=== PATIENT | female | born 1995 | race Hispanic/Latino ===

== ENCOUNTER 2019-01-22 07:43 | Emergency (ER) | payer SELFPAY ==
[2019-01-22] MEDS ORDERED: MORPHINE 4 MG/ML SYR ONE (08:08)
[2019-01-22] MEDS ORDERED: ONDANSETRON 4 MG/2 ML VIAL ONE (08:08)
[2019-01-22 08:20] LABS: Absolute Lymphocytes (CBC) 2.2 K/uL (0.7-4.9); Absolute Monocytes 0.8 K/uL (0.1-1.3); Absolute Neutrophil 8.4 K/uL (1.8-8.0); Basophils % 0.4 % (0-1.3); Eosinophils % 2.6 % (0-4.4); MPV 8.2 fL (7.6-11.3); Monocytes % 6.7 % (3.3-12.3); RBC Red Blood Cell Count 4.85 M/uL (3.86-4.86)
[2019-01-22 08:31] LABS: Urine Blood NEGATIVE (NEG); Urine Glucose NEGATIVE (NEG); Urine Protein NEGATIVE (NEG); Urine Specific Gravity 1.015 (1.005-1.030)
[2019-01-22 08:31] LABS: Urine Bacteria >50 /HPF (<20); Urine Culture Reflex Order NOT NEEDED
--- NOTE | 2019-01-22 09:17 | RAD REPORT ---
EXAM DESCRIPTION: US - Abdomen Exam Limited - 01/22/2019 8:50 am CLINICAL HISTORY: ABD PAIN COMPARISON: No comparisons FINDINGS: The gallbladder demonstrates several shadowing gallstones in the gallbladder. No perichole cystic fluid or gallbladder wall thickening. The common bile duct is normal measuring 5 mm. The liver demonstrates no findings of intrahepatic biliary dilatation. IMPRESSION: Cholelithiasis.
[2019-01-22 09:23] LABS: ALT/SGPT 68 U/L (12-78); AST/SGOT 53 U/L (15-37); Albumin 3.9 g/dL (3.4-5.0); Alkaline Phosphatase 92 U/L (45-117); BUN Blood Urea Nitrogen 13 mg/dL (7-18); Bicarbonate 28 mmol/L (21-32); Bilirubin Direct 0.2 mg/dL (0-0.2); Bilirubin Total 0.5 mg/dL (0.2-1.0); Glucose Level 88 mg/dL (74-106); Lipase 107 U/L (73-393); Potassium 3.7 mmol/L (3.5-5.1); Protein, Total 7.9 g/dL (6.4-8.2); Sodium Level 140 mmol/L (136-145)
--- NOTE | 2019-01-22 09:49 | RAD REPORT ---
EXAM DESCRIPTION: CTAbdomen Pelvis W Contrast - 01/22/2019 9:34 am CLINICAL HISTORY: Abdominal pain. Abd pain, IV contrast only COMPARISON: No comparisons TECHNIQUE: Biphasic CT imaging of the abdomen and pelvis was performed with 100 ml non-ionic IV cont rast. All CT scans are performed using dose optimization technique as appropriate and may include automated exposure control or mA/KV adjustment according to patient size. FINDINGS: The lung bases are clear. The liver, spleen, pancreas, adrenal glands and kidneys are within normal limits. No bowel obstruction, free air, free fluid or abscess. The appendix is normal. No evidence of signi ficant lymphadenopathy. No suspicious bony findings. IMPRESSION: No acute intra-abdominal or pelvic finding.
--- NOTE | 2019-01-22 10:40 | ER ---
Nurse's Notes [facility] Name: Zehra Car Age: 23 yrs Sex: Female : 1995 Arrival Date: 01/22/2019 Time: 07:44 Bed 8 Private MD: Diagnosis: Cholelithiasis Presentation: 01/22 07:51 Transition of care: patient was not received from another setting of care. Onset of tw2 symptoms was January 22, 2019. Risk Assessment: Do you want to hurt yourself or someone else? Patient reports no desire to harm self or others. Initial Sepsis Screen: Does the patient meet any 2 criteria? No. Patient's initial sepsis screen is negative. Does the patient have a suspected source of infection? No. Patient's initial sepsis screen is negative. Care prior to arrival: None. 07:51 Acuity: MADELINE 3 tw2 07:51 Method Of Arrival: Ambulatory tw2 07:51 Presenting complaint: Patient states: epigastric pain that began this morning. Pt aa5 states "I've had this pain before about 4 other times and the last time was about 15 days ago". Pt denies nausea/denies vomiting. Triage Assessment: 07:50 General: Appears uncomfortable, Behavior is cooperative, appropriate for age. Pain: tw2 Complains of pain in abdomen. GI: Abdomen is round non-distended, Reports lower abdominal pain, upper abdominal pain. 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 - Social history:: Smoking status: . - Ebola Screening: : Patient denies travel to an Ebola-affected area in the 21 days before illness onset. - Family history:: not pertinent. - Hospitalizations: : No recent hospitalization is reported. Screenin:50 Abuse screen: Denies threats or abuse. Nutritional screening: No deficits noted. tw2 Tuberculosis screening: No symptoms or risk factors identified. Fall Risk None identified. Assessment: 07:48 General: Appears uncomfortable, Behavior is calm, cooperative, appropriate for age. tw2 Pain: Complains of pain in abdomen. Neuro: Level of Consciousness is awake, alert, obeys commands, Oriented to person, place, time, situation. Cardiovascular: Heart tones S1 S2 Patient's skin is warm and dry. Respiratory: Airway is patent Respiratory effort is even, unlabored, Respiratory pattern is regular, symmetrical, Breath sounds are clear bilaterally. GI: Abdomen is round non-distended, Bowel sounds present X 4 quads. Abd is soft X 4 quads. : No signs and/or symptoms were reported regarding the genitourinary system. EENT: No signs and/or symptoms were reported regarding the EENT system. Derm: No signs and/or symptoms reported regarding the dermatologic system. Musculoskeletal: Circulation, motion, and sensation intact. Range of motion: intact in all extremities. Vital Signs: 07:51 BP 149 / 92; Pulse 84; Resp 19; Temp 97.6(O); Pulse Ox 100% on R/A; tw2 07:52 Temp 97.1(TE); Weight 111.58 kg (R); Pain 9/10; aa5 08:40 BP 128 / 64; Pulse 75; Resp 17; Pulse Ox 97% on R/A; Pain 6/10; tw2 10:34 BP 130 / 89; Pulse 71; Resp 17; Pulse Ox 100% on R/A; tw2 ED Course: 07:44 Patient arrived in ED. as 07:46 Bed in low position. Call light in reach. Adult w/ patient. Pulse ox on. NIBP on. tw2 07:48 Francesco Berrios MD is Attending Physician. rn 07:49 Dianne Harden RN is Primary Nurse. tw2 07:50 Arm band placed on. tw2 07:52 Triage completed. tw2 07:55 Inserted saline lock: 22 gauge in right antecubital area, using aseptic technique. tw2 Blood collected. 08:31 US Abdomen Limited In Process Unspecified. EDMS 09:32 CT completed. Patient tolerated procedure well. Patient moved to CT via wheelchair. ls3 Patient moved back from CT. 09:35 CT Abd/Pelvis - W/Contrast In Process Unspecified. EDMS 10:39 Marcell Nunes MD is Referral Physician. rn 11:03 No provider procedures requiring assistance completed. IV discontinued, intact, tw2 bleeding controlled, No redness/swelling at site. Pressure dressing applied. Administered Medications: 07:58 Drug: Zofran 4 mg Route: IVP; Site: right antecubital; tw2 08:55 Follow up: Response: No adverse reaction tw2 08:03 Drug: morphine 4 mg Route: IVP; Site: right antecubital; tw2 08:55 Follow up: Response: No adverse reaction; Pain is decreased tw2 Outcome: 10:39 Discharge ordered by . rn 11:03 Discharged to home ambulatory, with significant other. tw2 11:03 Condition: stable 11:03 Discharge instructions given to patient, family, Instructed on discharge instructions, follow up and referral plans. Demonstrated understanding of instructions, follow-up care. 11:03 Patient left the ED. tw2 Signatures: Dispatcher [employer] EDMS Nona Nunes Roman, MD MD rn Calderon, Audri RN RN aa5 Dianne Harden RN RN tw2 Logan Saenz 3 Corrections: (The following items were deleted from the chart) 08:40 08:40 BP 128 / 64; Pulse 75bpm; Resp 17bpm; Pulse Ox 97% RA; tw2 tw2
--- NOTE | 2019-01-22 10:40 | EDPHYS ---
Physician Documentation [facility] Name: Zehra Car Age: 23 yrs Sex: Female : 1995 Arrival Date: 01/22/2019 Time: 07:44 Bed 8 Private MD: ED Physician Francesco Berrios HPI: 01/22 07:52 This 23 yrs old Female presents to ER via Ambulatory with complaints of rn Abdominal Pain. 07:52 The patient presents with abdominal pain in the epigastric area. Onset: The rn symptoms/episode began/occurred this morning. The symptoms do not radiate. Associated signs and symptoms: Pertinent positives: nausea, Pertinent negatives: blood in stools, chest pain, constipation, fever, shortness of breath, vomiting. The symptoms are described as crampy, sharp. Modifying factors: The symptoms are alleviated by nothing, the symptoms are aggravated by food. Severity of pain: At its worst the pain was moderate in the emergency department the pain is unchanged. The patient has experienced similar episodes in the past. Reports epigastric abd tenderness, began this morning, has happened several times in past, no fever, + nausea, worse after eating certain foods, more constant this AM and didn't go away so came in for eval. . 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 - Social history:: Smoking status: . - Ebola Screening: : Patient denies travel to an Ebola-affected area in the 21 days before illness onset. - Family history:: not pertinent. - Hospitalizations: : No recent hospitalization is reported. ROS: 07:52 Constitutional: Negative for fever, chills, and weight loss, Eyes: Negative for injury, rn pain, redness, and discharge, Neck: Negative for injury, pain, and swelling, Cardiovascular: Negative for chest pain, palpitations, and edema, Respiratory: Negative for shortness of breath, cough, wheezing, and pleuritic chest pain, Abdomen/GI: + abd pain and nausea, no diarrhea MS/Extremity: Negative for injury and deformity, Skin: Negative for injury, rash, and discoloration, Neuro: Negative for headache, weakness, numbness, tingling, and seizure. Exam: 07:52 Constitutional: This is a well developed, well nourished patient who is awake, alert, bar turner to room, appears uncomfortable. Head/Face: Normocephalic, atraumatic. Eyes: Pupils equal round and reactive to light, extra-ocular motions intact. Lids and lashes normal. Conjunctiva and sclera are non-icteric and not injected. Cornea within normal limits. Periorbital areas with no swelling, redness, or edema. ENT: MMM Respiratory: No increased work of breathing, no retractions or nasal flaring. Abdomen/GI: soft, + epigastric tenderness, no rebound Skin: Warm, dry MS/ Extremity: Pulses equal, no cyanosis. Neurovascular intact. Full, normal range of motion. Equal circumference. Neuro: Awake and alert, GCS 15, oriented to person, place, time, and situation. Motor strength 5/5 in all extremities. Sensory grossly intact. Cerebellar exam normal. Normal gait. Vital Signs: 07:51 BP 149 / 92; Pulse 84; Resp 19; Temp 97.6(O); Pulse Ox 100% on R/A; tw2 07:52 Temp 97.1(TE); Weight 111.58 kg (R); Pain 9/10; aa5 08:40 BP 128 / 64; Pulse 75; Resp 17; Pulse Ox 97% on R/A; Pain 6/10; tw2 10:34 BP 130 / 89; Pulse 71; Resp 17; Pulse Ox 100% on R/A; tw2 MDM: 07:48 Patient medically screened. rn 09:48 Response to treatment: the patient's symptoms have resolved after treatment, the rn patient's condition has returned to base line, the patient is now symptom free. 10:37 Differential diagnosis: cholecystitis, Cholelithiasis, gastritis. Data reviewed: vital rn signs, nurses notes, lab test result(s), radiologic studies, CT scan, ultrasound, and as a result, I will discharge patient. Counseling: I had a detailed discussion with the patient and/or guardian regarding: the historical points, exam findings, and any diagnostic results supporting the discharge/admit diagnosis, lab results, radiology results, the need for outpatient follow up, to return to the emergency department if symptoms worsen or persist or if there are any questions or concerns that arise at home. Special discussion: Based on the patient's Hx, exam, and Dx evaluation, there is no indication for emergent surgery or inpatient Tx. It is understood by the patient/guardian that if the Sx's persist or worsen they need to return immediately for re-evaluation. I discussed with the patient/guardian in detail that at this point there is no indication for admission to the hospital. It is understood, however, that if the symptoms persist or worsen the patient needs to return immediately for re-evaluation. Based on the history and exam findings, there is no indication for further emergent testing or inpatient evaluation. I discussed with the patient/guardian the need to see the general surgeon for further evaluation of the symptoms. ED course: No evidence of cholecystitis, CBD normal, normal ct abd, will dc home with surgical f/u. Return precautions and dietary instructions given.. 01/22 07:52 Order name: Basic Metabolic Panel 01/22 07:52 Order name: CBC with Diff; Complete Time: 08:41 01/22 07:52 Order name: Hepatic Function; Complete Time: 09:40 01/22 07:52 Order name: Lipase; Complete Time: 09:40 01/22 07:52 Order name: Urine Microscopic Only; Complete Time: 08:41 01/22 07:52 Order name: Basic Metabolic Panel; Complete Time: 09:40 EDMS 01/22 07:52 Order name: IV Saline Lock; Complete Time: 08:27 rn 01/22 07:52 Order name: Labs collected and sent; Complete Time: 08:27 rn 01/22 07:52 Order name: US Abdomen Limited; Complete Time: 09:40 rn 01/22 08:10 Order name: Urine Dipstick--Ancillary (enter results); Complete Time: 08:41 eb 01/22 08:10 Order name: Urine --Ancillary (enter results); Complete Time: 08:41 eb 01/22 08:52 Order name: CT Abd/Pelvis - W/Contrast; Complete Time: 09:50 rn 01/22 07:52 Order name: Urine Test (obtain specimen); Complete Time: 08:27 rn 01/22 07:52 Order name: Urine Dipstick-Ancillary (obtain specimen); Complete Time: 08:28 rn Administered Medications: 07:58 Drug: Zofran 4 mg Route: IVP; Site: right antecubital; tw2 08:55 Follow up: Response: No adverse reaction tw2 08:03 Drug: morphine 4 mg Route: IVP; Site: right antecubital; tw2 08:55 Follow up: Response: No adverse reaction; Pain is decreased tw2 Disposition: 01/22/19 10:39 Discharged to Home. Impression: Cholelithiasis. - Condition is Stable. - Discharge Instructions: Cholelithiasis. - Medication Reconciliation Form, Thank You Letter, Antibiotic Education, Prescription Opioid Use form. - Follow up: Marcell Nunes MD; When: As needed; Reason: Recheck today's complaints, Re-evaluation by your physician. - Problem is an ongoing problem. - Symptoms have improved. Signatures: Dispatcher [employer] EDMS Francesco Berrios MD MD rn Calderon, Audri, RN RN aa5 Dianne Harden RN RN tw2 Corrections: (The following items were deleted from the chart) 11:03 10:39 01/22/2019 10:39 Discharged to Home. Impression: Cholelithiasis. Condition is tw2 Stable. Forms are Medication Reconciliation Form, Thank You Letter, Antibiotic Education, Prescription Opioid Use. Follow up: Marcell Nunes; When: As needed; Reason: Recheck today's complaints, Re-evaluation by your physician. Problem is an ongoing problem. Symptoms have improved. rn
== END 2019-01-22 11:03 | disposition home or self-care (01) ==
LOC: ER 07:43
DX: K80.20 Calculus of gallbladder without cholecystitis without obstruction (principal)
CPT/HCPCS: 36415; 74177; 76705; 80048; 80076; 81003; 81015; 81025; 83690; 85025; 96374; 96375; 99284; J2405; Q9967

== ENCOUNTER 2019-01-22 15:40 | Inpatient (IN) | payer SELFPAY ==
--- OUTSIDE RECORDS SUMMARY | 2019-01-22 15:43 | XMS REPORT ---
:1995 [facility] Address [address] [place] [address] [address] [place] [address] Care Team Providers Name Role Phone Unavailable Unavailable Unavailable Payers Payer Name Policy Type Policy Number Effective Date Expiration Date Problems This patient has no known problems. Allergies, Adverse Reactions, Alerts Allergy Allergy Status Severity Reaction(s) Onset Inactive Treating Comments Name Type Date Date Clinician No Known DA Active U 2018-08 Allergies -14 00:00:0 0 Medications This patient has no known medications.
[2019-01-22] MEDS ORDERED: MORPHINE 4 MG/ML SYR ONE (16:12)
[2019-01-22] MEDS ORDERED: NA CHLORIDE 0.9% 1,000 ML ONE (16:12)
[2019-01-22] MEDS ORDERED: ONDANSETRON 4 MG/2 ML VIAL ONE (16:12)
--- NOTE | 2019-01-22 16:34 | ER ---
Nurse's Notes [facility] Name: Zehra Car Age: 23 yrs Sex: Female : 1995 Arrival Date: 01/22/2019 Time: 15:42 Bed 16 Private MD: Diagnosis: Cholelithiasis;Upper abdominal pain, unspecified Presentation: 01/22 15:49 Presenting complaint: Patient states: FROM THE [facility] "I WAS HERE EARLIER FOR STOMACH bp PAIN AND THEY TOLD ME TO COME BACK IF THE PAIN CAME BACK.". Transition of care: patient was not received from another setting of care. Onset of symptoms is unknown. Risk Assessment: Do you want to hurt yourself or someone else? Patient reports no desire to harm self or others. Initial Sepsis Screen: Does the patient meet any 2 criteria? No. Patient's initial sepsis screen is negative. Does the patient have a suspected source of infection? No. Patient's initial sepsis screen is negative. Care prior to arrival: None. 15:49 Method Of Arrival: Ambulatory bp 15:49 Acuity: MADELINE 3 bp Triage Assessment: 15:51 General: Appears in no apparent distress. uncomfortable, obese, Behavior is bp cooperative, appropriate for age, crying. Pain: Complains of pain in abdomen. EENT: No deficits noted. Neuro: Level of Consciousness is awake, alert, obeys commands, Oriented to person, place, time, situation, Appropriate for age. Cardiovascular: No deficits noted. Respiratory: Airway is patent Respiratory effort is even, unlabored, Respiratory pattern is regular, symmetrical. GI: Reports upper abdominal pain. : No signs and/or symptoms were reported regarding the genitourinary system. Derm: No deficits noted. Musculoskeletal: Circulation, motion, and sensation intact. Range of motion: intact in all extremities. 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 - Social history:: Smoking status: Patient/guardian denies using tobacco. - Ebola Screening: : No symptoms or risks identified at this time. Screenin:54 Abuse screen: Denies threats or abuse. Denies injuries from another. Nutritional bp screening: No deficits noted. Tuberculosis screening: No symptoms or risk factors identified. Fall Risk None identified. Assessment: 15:54 General: SEE TRIAGE NOTE. bp 17:00 Reassessment: ADMIT PENDING, VS STABLE ON MONITOR. bp 18:34 Reassessment: SURGERY C/S AT B/S. bp 19:48 Reassessment: Patient appears in no apparent distress at this time. Patient and/or jd3 family updated on plan of care and expected duration. Pain level reassessed. Patient is alert, oriented x 3, equal unlabored respirations, skin warm/dry/pink. report given to Atul CHINO. Vital Signs: 15:51 BP 124 / 73; Pulse 62; Resp 14; Temp 97.8; Pulse Ox 100% ; Weight 111.58 kg; bp 17:28 BP 119 / 76; Pulse 88; Resp 16; Temp 98.9(O); Pulse Ox 99% on R/A; mh5 18:35 BP 107 / 95; Pulse 61; Resp 16; Temp 98.7; Pulse Ox 99% ; bp 19:50 BP 135 / 75; Pulse 64; Resp 17 S; Pulse Ox 98% on R/A; jd3 ED Course: 15:42 Patient arrived in ED. as 15:44 Timothy Zheng RN is Primary Nurse. bp 15:44 Prisc[facility] Rowland [facility]C [facility]. snw 15:44 Francesco Berrios MD is Attending Physician. snw 15:50 Triage completed. bp 15:54 Arm band placed on. bp 15:54 Patient has correct armband on for positive identification. Placed in gown. Bed in low bp position. Call light in reach. Side rails up X2. Adult w/ patient. 16:00 Inserted saline lock: 20 gauge in left forearm, using aseptic technique. bp 16:32 Estuardo Harrison MD is Hospitalizing Provider. snw 19:46 Primary Nurse role handed off by Timothy Zheng, MATTI ed1 19:48 Nnamdi Acosta RN is Primary Nurse. jd3 19:48 No provider procedures requiring assistance completed. Patient admitted, IV remains in jd3 place. Administered Medications: 16:00 Drug: NS 0.9% 1000 ml Route: IV; Rate: 125 ml/hr; Site: left forearm; bp 19:51 Follow up: Response: No adverse reaction; IV Status: Infusion continued upon admission jd3 16:00 Drug: morphine 4 mg Route: IVP; Site: left forearm; bp 16:33 Follow up: Response: Pain is decreased bp 16:00 Drug: Zofran 4 mg Route: IVP; Site: left forearm; bp 16:33 Follow up: Response: No adverse reaction bp 16:40 Drug: Zosyn 3.375 grams Route: IVPB; Infused Over: 60 mins; Site: left forearm; bp Outcome: 16:33 Decision to Hospitalize by Provider. snw 19:49 Admitted to Med/surg accompanied by tech, via wheelchair, room 215, with chart, Report jd3 called to Atul CHINO 19:49 Condition: stable 19:49 Instructed on the need for admit, Demonstrated understanding of instructions. 19:51 Patient left the ED. jd3 Signatures: Priscila Rowland, BULL DRIVER-C BULL DRIVER-CsnNona Castellanos Erika, RN RN ed1 Madelin Nunes [facility] Nnamdi Acosta RN RN jd3 Timothy Zheng RN RN bp Corrections: (The following items were deleted from the chart) 16:08 15:51 111.58 kg; bp bp
--- NOTE | 2019-01-22 16:34 | EDPHYS ---
Physician Documentation [facility] Name: Zehra Car Age: 23 yrs Sex: Female : 1995 Arrival Date: 01/22/2019 Time: 15:42 Bed 16 Private MD: ED Physician Francesco Berrios HPI: 01/22 16:34 This 23 yrs old Female presents to ER via Ambulatory with complaints of snw Epigastric Pain - Gallstones. 16:34 The patient presents with abdominal pain in the epigastric area. Onset: The snw symptoms/episode began/occurred 3 day(s) ago, and became persistent. The symptoms radiate to right back. Associated signs and symptoms: Pertinent positives: nausea. The symptoms are described as stabbing. Severity of pain: At its worst the pain was moderate severe. The patient has experienced a previous episode, yesterday. The patient has been recently seen by a physician: The patient has been recently seen at the [facility] Emergency Department, today, for similar complaints labs were performed, an ultrasound was performed, was given a prescription for pain medications, was given a prescription for an antiemetic, the patient was told to return for a recheck. 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 - Social history:: Smoking status: Patient/guardian denies using tobacco. - Ebola Screening: : No symptoms or risks identified at this time. ROS: 16:34 Constitutional: Negative for fever, chills, and weight loss, Eyes: Negative for injury, snw pain, redness, and discharge, ENT: Negative for injury, pain, and discharge, Neck: Negative for injury, pain, and swelling, Cardiovascular: Negative for chest pain, palpitations, and edema, Respiratory: Negative for shortness of breath, cough, wheezing, and pleuritic chest pain, Back: Negative for injury and pain, : Negative for injury, bleeding, discharge, and swelling, MS/Extremity: Negative for injury and deformity, Skin: Negative for injury, rash, and discoloration, Neuro: Negative for headache, weakness, numbness, tingling, and seizure, Psych: Negative for depression, anxiety, suicide ideation, homicidal ideation, and hallucinations. 16:34 Abdomen/GI: Positive for abdominal pain. Exam: 16:33 Constitutional: This is a well developed, well nourished patient who is awake, alert, snw and in no acute distress. Head/Face: Normocephalic, atraumatic. Eyes: Pupils equal round and reactive to light, extra-ocular motions intact. Lids and lashes normal. Conjunctiva and sclera are non-icteric and not injected. Cornea within normal limits. Periorbital areas with no swelling, redness, or edema. ENT: Nares patent. No nasal discharge, no septal abnormalities noted. Tympanic membranes are normal and external auditory canals are clear. Oropharynx with no redness, swelling, or masses, exudates, or evidence of obstruction, uvula midline. Mucous membranes moist. Neck: Trachea midline, no thyromegaly or masses palpated, and no cervical lymphadenopathy. Supple, full range of motion without nuchal rigidity, or vertebral point tenderness. No Meningismus. Chest/axilla: Normal chest wall appearance and motion. Nontender with no deformity. No lesions are appreciated. Cardiovascular: Regular rate and rhythm with a normal S1 and S2. No gallops, murmurs, or rubs. Normal PMI, no JVD. No pulse deficits. Respiratory: Lungs have equal breath sounds bilaterally, clear to auscultation and percussion. No rales, rhonchi or wheezes noted. No increased work of breathing, no retractions or nasal flaring. Back: No spinal tenderness. No costovertebral tenderness. Full range of motion. MS/ Extremity: Pulses equal, no cyanosis. Neurovascular intact. Full, normal range of motion. Neuro: Awake and alert, GCS 15, oriented to person, place, time, and situation. Cranial nerves II-XII grossly intact. Motor strength 5/5 in all extremities. Sensory grossly intact. Cerebellar exam normal. Normal gait. Psych: Awake, alert, with orientation to person, place and time. Behavior, mood, and affect are within normal limits. 16:33 Abdomen/GI: Inspection: abdomen appears normal, obese Bowel sounds: normal, Palpation: moderate abdominal tenderness, in the epigastric area, right upper quadrant and left upper quadrant. 16:33 Skin: Appearance: Color: pale, Temperature: normal temperature, Moisture: normal moisture. Vital Signs: 15:51 BP 124 / 73; Pulse 62; Resp 14; Temp 97.8; Pulse Ox 100% ; Weight 111.58 kg; bp 17:28 BP 119 / 76; Pulse 88; Resp 16; Temp 98.9(O); Pulse Ox 99% on R/A; mh5 18:35 BP 107 / 95; Pulse 61; Resp 16; Temp 98.7; Pulse Ox 99% ; bp 19:50 BP 135 / 75; Pulse 64; Resp 17 S; Pulse Ox 98% on R/A; jd3 MDM: 15:45 Patient medically screened. snw 16:31 Data reviewed: vital signs, nurses notes. Data interpreted: Pulse oximetry: on room air snw is 100 %. Interpretation: normal. Counseling: I had a detailed discussion with the patient and/or guardian regarding: the historical points, exam findings, and any diagnostic results supporting the discharge/admit diagnosis, the need for further work-up and treatment in the hospital. Physician consultation: Estuardo Harrison MD was called at 16:31, was contacted at 16:31, regarding admission, to the medical/surgical unit. would like medications started, Zosyn, NPO, IVF, probable surgery tomorrow. 01/22 16:12 Order name: Urine Dipstick--Ancillary (enter results); Complete Time: 17:04 01/22 16:12 Order name: Urine --Ancillary (enter results); Complete Time: 17:04 01/22 15:48 Order name: NPO; Complete Time: 16:07 snw Administered Medications: 16:00 Drug: NS 0.9% 1000 ml Route: IV; Rate: 125 ml/hr; Site: left forearm; bp 19:51 Follow up: Response: No adverse reaction; IV Status: Infusion continued upon admission jd3 16:00 Drug: morphine 4 mg Route: IVP; Site: left forearm; bp 16:33 Follow up: Response: Pain is decreased bp 16:00 Drug: Zofran 4 mg Route: IVP; Site: left forearm; bp 16:33 Follow up: Response: No adverse reaction bp 16:40 Drug: Zosyn 3.375 grams Route: IVPB; Infused Over: 60 mins; Site: left forearm; bp Disposition: 01/23 07:00 Co-signature as Attending Physician, Francesco Berrios MD. rn Disposition: 01/22/19 16:33 Hospitalization ordered by Estuardo Harrison for Inpatient Admission. Preliminary diagnosis are Cholelithiasis, Upper abdominal pain, unspecified. - Bed requested for Telemetry/MedSurg (Inpatient). - Status is Inpatient Admission. jd3 - Condition is Stable. - Problem is an acute exacerbation. - Symptoms have worsened. UTI on Admission? No Signatures: Dispatcher [employer] EDMS Priscila Rowland, PAINTER TUMBLING BARREL-C PAINTER TUMBLING BARREL-Csnw Francesco Berrios MD MD rn Davies, Jonathon, RN RN Timothy Tapia RN RN Sheri Rosario Corrections: (The following items were deleted from the chart) 01/22 18:47 16:33 Hospitalization Ordered by Estuardo Harrison MD for Inpatient Admission. Preliminary eb diagnosis is Cholelithiasis; Upper abdominal pain, unspecified. Bed requested for Telemetry/MedSurg (Inpatient). Status is Inpatient Admission. Condition is Stable. Problem is an acute exacerbation. Symptoms have worsened. UTI on Admission? No. snw 19:51 18:47 01/22/2019 16:33 Hospitalization Ordered by Estuardo Harrison MD for Inpatient jd3 Admission. Preliminary diagnosis is Cholelithiasis; Upper abdominal pain, unspecified. Bed requested for Telemetry/MedSurg (Inpatient). Status is Inpatient Admission. Condition is Stable. Problem is an acute exacerbation. Symptoms have worsened. UTI on Admission? No. eb
[2019-01-22] MEDS ORDERED: PIPER/TAZO/NS 3.375gm 3.375 GM/100 ML BAG ONE (16:49)
[2019-01-22 17:01] LABS: Urine Blood TRACE (NEG); Urine Glucose NEGATIVE (NEG); Urine Protein TRACE (NEG); Urine Specific Gravity 1.025 (1.005-1.030)
[2019-01-22] MEDS ORDERED: ONDANSETRON 4 MG/2 ML VIAL IV PRN (20:05)
[2019-01-22] MEDS ORDERED: MORPHINE 4 MG/ML SYR IV PRN (20:05)
[2019-01-22] MEDS: D5 0.45 NS 1,000 ML IV SCH (20:45)
[2019-01-22 20:49] LABS: Albumin 3.5 g/dL (3.4-5.0); Bilirubin Direct 1.3 mg/dL (0-0.2); Protein, Total 7.4 g/dL (6.4-8.2)
[2019-01-23] MEDS ORDERED: NA CHLORIDE 0.9% 100 ML ONE (00:53)
[2019-01-23] MEDS ORDERED: PIPERACIL/TAZO 3.375 GM VIAL IV ONE (00:54)
[2019-01-23] MEDS: PIPER/TAZO/NS 3.375gm 3.375 GM/100 ML BAG IVPB SCH ×2 (00:54→08:52)
[2019-01-23 04:49] LABS: Absolute Lymphocytes (CBC) 1.9 K/uL (0.7-4.9); Absolute Monocytes 0.7 K/uL (0.1-1.3); Absolute Neutrophil 5.8 K/uL (1.8-8.0); Basophils % 0.2 % (0-1.3); Eosinophils % 2.7 % (0-4.4); Hematocrit 37.9 % (36.0-45.0); Lymphocytes % 21.6 % (15.3-44.8); MPV 8.4 fL (7.6-11.3); Monocytes % 8.1 % (3.3-12.3); RBC Red Blood Cell Count 4.27 M/uL (3.86-4.86)
--- NOTE | 2019-01-23 04:53 | HP ---
Date of Admission: 01/22/2019 Brief History Of Present Illness: The patient is a 23-year-old obese female, who presented to the hospital for the second time today after being seen in the ER with epigastric and right upper quadrant abdominal pain. She came earlier this morning with this pain, which began approximately yes terday after eating greasy meal. She was brought to the emergency room, had a workup at that time in cluding an ultrasound and labs. Ultimately, her pain improved significantly and she wanted to go brain e and after her pain completely resolved, she went home and ate some beef brisket, which she states w as very greasy as she states she did not know that she needed to be compliant with a diet immediately . As such, she came back with the same said abdominal pain in the epigastric and right upper quadran t region. Once again, her pain has significantly improved and is almost completely resolved at this point. Past Medical History: Significant for morbid obesity and asthma. Past Surgical History: Negative. Medications: Home medications include phentermine from [place] she states and occasional albuterol in [facility], which she uses only with seasonal times, but she is currently not in need of this. Allergies: NO KNOWN DRUG ALLERGIES. Social History: She denies smoking, alcohol, or recreational drug use. Physical Examination: General: At the time of my examination, she is awake, alert, oriented. Psychiatric: She is appropriate and conversive. HEENT: She is normocephalic. Her sclerae are anicteric. Her mucous membranes are moist. Oropharyn x clear. Neck: Supple. No JVD. Chest: Normal expansion and excursion. Cardiovascular: Regular rhythm. Pulmonary: Clear to auscultation bilaterally. Abdomen: Soft with mild tenderness to deep palpation in the epigastrium. No rebound. No guarding. No focal peritonitis. Negative Sewell sign. Abdomen: Obese generally. Extremities: No clubbing, cyanosis, or edema. Skin: Warm and dry. Laboratory Data: White blood count of 11.8, hemoglobin is 14.6, hematocrit of 43.0, platelet count i s 287, neutrophils are normal at 71%. Her sodium is 140, potassium 3.7, chloride 105, carbon dioxide 28, BUN 13, creatinine 0.6, glucose is 88. Total bilirubin 0.5, direct component 0.2, AST is 53, AL T 68, alkaline phosphatase is 92, lipase is 107. UA shows greater than 50 bacteria, but 20-50 squamo us cells. Urine test was negative. She had imaging performed this morning, which was an a bdominal ultrasound, officially read as cholelithiasis. Only the gallbladder demonstrates several sh adowing gallstones in the gallbladder. No pericholecystic fluid or gallbladder wall thickening. Com mon bile duct is normal at 5 mm. Liver demonstrates no findings of intrahepatic biliary ductal dilat ation. She additionally had a CT scan of the abdomen and pelvis, which was also officially read as n o acute intraabdominal or pelvic findings. Assessment And Plan: This is a 23-year-old female, who came in with likely symptomatic cholelithiasi s, now with her symptoms improved. 1.IV fluid hydration. 2.Antibiotic coverage with Zosyn 3.375 IV q.6. 3.I have explained risks, benefits, and alternatives of laparoscopic possible open cholecystectomy i ncluding, but not limited to bleeding, infection, damage to surrounding tissues, need for further ope ration and procedures, injury to bile ducts, intestines. The patient has stated that she would like to try nonoperative management, does not want to have any surgery, and she states I have never had armas rgery before and do not want to have surgery and asked if there is anyway she cannot have surgery. A s such, I explained dietary modification, lifestyle modification, to try to avoid rapid weight loss w ith phentermine and other methods, and to change her diet as described with respect to a gallbladder diet, healthier, non fatty or greasy sources, and I have gone to this in great detail with the assist alberto of a site interpreter, who was present throughout the entire procedure in the emergency room. The patient agrees to proceed as indicated. Therefore, I have asked the patient to be admitted ove r the course of the evening. She initially wanted to go home. However, I have asked her to stay ove r the course of the evening, which she has agreed to. I will re-examine her in the morning and see i f she has significant improvement and able to tolerate diet without issues. I will then discharge he r with instructions to follow up if she has recurrence of her symptoms. The patient agrees to procee d as indicated. EMILE/WALTER Voice ID: [id number]
[2019-01-23 04:57] LABS: BUN Blood Urea Nitrogen 12 mg/dL (7-18); Bicarbonate 27 mmol/L (21-32); Glucose Level 101 mg/dL (74-106); Potassium 3.9 mmol/L (3.5-5.1); Sodium Level 140 mmol/L (136-145)
[2019-01-23] MEDS: D5 0.45 NS 1,000 ML IV SCH ×2 (05:53→12:05)
--- NOTE | 2019-01-23 10:01 | P.DS ---
Admission Date: 01/22/19 Discharge Date: 01/23/19 Disposition: ROUTINE DISCHARGE Discharge Condition: GOOD Reason for Admission: Symptomatic Cholelithiasis Brief History of Present Illness: Patient is a 23 year old woman who presented to ER 2x in the same day with complaints of RUQ abdominal pain. Workup revealed cholelithiasis Hospital Course: Patient did well overnight, no pain, states she does not want surgery. She wants to go home Vital Signs/Physical Exam: Temp Pulse Resp BP Pulse Ox 97.8 F 68 16 112/57 L 99 01/23/19 04:00 01/23/19 04:00 01/23/19 04:00 01/23/19 04:00 01/23/19 04:00 General: Alert, In no apparent distress, Cooperative Gastrointestinal: Soft and benign, Non-distended, No ascites, No tenderness, No masses, No rebound, No guarding Laboratory Data at Discharge: WBC 8.6 K/uL (4.3-10.9) D 01/23/19 04:08 Hgb 12.9 g/dL (12.0-15.0) 01/23/19 04:08 Hct 37.9 % (36.0-45.0) 01/23/19 04:08 Plt Count 250 K/uL (152-406) 01/23/19 04:08 Sodium 140 mmol/L (136-145) 01/23/19 04:08 Potassium 3.9 mmol/L (3.5-5.1) 01/23/19 04:08 BUN 12 mg/dL (7-18) 01/23/19 04:08 Creatinine 0.75 mg/dL (0.55-1.3) 01/23/19 04:08 Glucose 101 mg/dL (74-106) 01/23/19 04:08 Total Bilirubin 2.0 mg/dL (0.2-1.0) H 01/22/19 20:14 AST 131 U/L (15-37) H 01/22/19 20:14 ALT 152 U/L (12-78) H 01/22/19 20:14 Alkaline Phosphatase 102 U/L (45-117) 01/22/19 20:14 Home Medications: Orlistat [Xenical] 120 mg PO BID 01/22/19 Diet: [place] Activity: Ad filipe
== END 2019-01-23 14:20 | disposition home or self-care (01) | DRG 445 ==
LOC: ER 15:40 → ERHOLD 17:59 → 2ND 19:38
PROVIDERS: ADMIT Surgery; ATTEND Surgery
DX: K80.20 Calculus of gallbladder without cholecystitis without obstruction (principal); Z68.41 Body mass index [BMI] 40.0-44.9, adult; E66.01 Morbid (severe) obesity due to excess calories; J45.909 Unspecified asthma, uncomplicated
CPT/HCPCS: 36415; 80048; 80076; 81003; 81025; 85025; 96361; 96374; 96375; 99285; J2405; J2543; J7030

== ENCOUNTER 2019-01-23 20:16 | Emergency (ER) | payer SELFPAY ==
--- OUTSIDE RECORDS SUMMARY | 2019-01-23 20:36 | XMS REPORT ---
:1995 [facility] Address [address] [place] [address] [address] [place] [address] Care Team Providers Name Role Phone Unavailable [...]
[2019-01-23] MEDS ORDERED: NA CHLORIDE 0.9% 1,000 ML ONE (21:18)
[2019-01-23 21:24] LABS: Absolute Lymphocytes (CBC) 1.2 K/uL (0.7-4.9); Absolute Monocytes 0.5 K/uL (0.1-1.3); Absolute Neutrophil 8.2 K/uL (1.8-8.0); Basophils % 0.4 % (0-1.3); Eosinophils % 0.9 % (0-4.4); Hematocrit 38.7 % (36.0-45.0); MPV 8.3 fL (7.6-11.3); Monocytes % 5.2 % (3.3-12.3); RBC Red Blood Cell Count 4.35 M/uL (3.86-4.86)
--- NOTE | 2019-01-23 21:29 | ER ---
Nurse's Notes [facility] Name: Zehra Car Age: 23 yrs Sex: Female : 1995 Arrival Date: 01/23/2019 Time: 20:20 Bed 19 Private MD: Diagnosis: Choledocolithiasis;Upper abdominal pain, unspecified Presentation: 01/23 20:34 Presenting complaint: states: She has a problem with her gallbladder and they ed1 doctor said if the pain got worse to come back. Transition of care: patient was not received from another setting of care. Onset of symptoms was January 23, 2019. Risk Assessment: Do you want to hurt yourself or someone else? Patient reports no desire to harm self or others. Initial Sepsis Screen: Does the patient meet any 2 criteria? No. Patient's initial sepsis screen is negative. Does the patient have a suspected source of infection? No. Patient's initial sepsis screen is negative. Care prior to arrival: None. 20:34 Method Of Arrival: Wheelchair ed1 20:34 Acuity: MADELINE 3 ed1 Triage Assessment: 20:35 General: Appears uncomfortable, Behavior is calm, cooperative. Pain: Complains of pain ed1 in right upper quadrant Pain currently is 10 out of 10 on a pain scale. GI: Reports nausea. 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 - Social history:: Smoking status: Patient/guardian denies using tobacco. - Ebola Screening: : Patient negative for fever greater than or equal to 101.5 degrees Fahrenheit, and additional compatible Ebola Virus Disease symptoms Patient denies exposure to infectious person Patient denies travel to an Ebola-affected area in the 21 days before illness onset No symptoms or risks identified at this time. Screenin:37 Abuse screen: Denies threats or abuse. Denies injuries from another. Nutritional cc3 screening: No deficits noted. Tuberculosis screening: No symptoms or risk factors identified. Fall Risk Ambulatory Aid- None/Bed Rest/Nurse Assist (0 pts). Gait- Normal/Bed Rest/Wheelchair (0 pts) Mental Status- Oriented to own ability (0 pts). Assessment: 20:37 GI: Bowel sounds present X 4 quads. Abd is soft Abdomen is tender to palpation. cc3 21:30 Reassessment: Patient appears in no apparent distress at this time. Patient and/or cc3 family updated on plan of care and expected duration. Pain level reassessed. Patient is alert, oriented x 3, equal unlabored respirations, skin warm/dry/pink. Surgeon Dr. Nunes assessing the patient at bedside. 22:40 Reassessment: Patient appears in no apparent distress at this time. Patient and/or cc3 family updated on plan of care and expected duration. Pain level reassessed. Patient is alert, oriented x 3, equal unlabored respirations, skin warm/dry/pink. Patient denies pain at this time. 23:45 Reassessment: Patient appears in no apparent distress at this time. Patient and/or cc3 family updated on plan of care and expected duration. Pain level reassessed. Patient is alert, oriented x 3, equal unlabored respirations, skin warm/dry/pink. 01/24 00:10 Reassessment: Patient appears in no apparent distress at this time. Patient and/or cc3 family updated on plan of care and expected duration. Pain level reassessed. Patient is alert, oriented x 3, equal unlabored respirations, skin warm/dry/pink. Patient for transfer to [facility], report called and handed over to MATTI English. Transfer form completed signed by the patient herself. ED sales audit clerk to arrange EMS transport for the patient. 01:10 Reassessment: Patient appears in no apparent distress at this time. Patient and/or cc3 family updated on plan of care and expected duration. Pain level reassessed. Patient is alert, oriented x 3, equal unlabored respirations, skin warm/dry/pink. ED Rn [facility]ole said the EMS will take a while to arrive, patient informed. 02:10 Reassessment: Patient appears in no apparent distress at this time. Patient and/or cc3 family updated on plan of care and expected duration. Pain level reassessed. Patient is alert, oriented x 3, equal unlabored respirations, skin warm/dry/pink. [facility] came for patient transport. 02:20 Reassessment: Patient appears in no apparent distress at this time. Patient and/or cc3 family updated on plan of care and expected duration. Pain level reassessed. Patient is alert, oriented x 3, equal unlabored respirations, skin warm/dry/pink. Patient left ER vitally stable by EMS stretcher with her . Patient denies pain at this time. Patient states feeling better. Vital Signs: 01/23 20:35 BP 102 / 79; Pulse 63; Resp 20; Temp 98(TE); Pulse Ox 100% on R/A; Weight 113.4 kg; ed1 Height 5 ft. 3 in. (160.02 cm); Pain 10/10; 21:30 BP 101 / 69; Pulse 88; Resp 18 S; Pulse Ox 100% on R/A; cc3 22:40 BP 106 / 49; Pulse 66; Resp 18 S; Pulse Ox 100% on R/A; cc3 23:00 BP 101 / 67; Pulse 60; Resp 17 S; Pulse Ox 99% on R/A; cc3 05 00:45 BP 105 / 60; Pulse 61; Resp 17 S; Pulse Ox 99% on R/A; cc3 01:28 BP 113 / 61; Pulse 59; Resp 17 S; Pulse Ox 99% on R/A; cc3 02:10 BP 106 / 65; Pulse 75; Resp 18 S; Pulse Ox 100% on R/A; cc3 01/23 20:35 Body Mass Index 44.29 (113.40 kg, 160.02 cm) ed1 ED Course: 01/23 20:20 Patient arrived in ED. es 20:25 Priscila Rowland FNP-C is PHCP. snw 20:25 Carmine Rose MD is Attending Physician. snw 20:34 Triage completed. ed1 20:35 Arm band placed on left wrist. ed1 20:37 Lanie Davis is Primary Nurse. cc3 20:37 Patient has correct armband on for positive identification. Placed in gown. Bed in low cc3 position. Call light in reach. Side rails up X 1. Pulse ox on. NIBP on. 21:10 Inserted saline lock: 20 gauge in right antecubital area, using aseptic technique. cc3 Blood collected. 21:27 Marcell Nunes MD is Hospitalizing Provider. snw 23:54 Shanae Laguerre MD is Referral Physician. [facility] 01/24 02:10 No provider procedures requiring assistance completed. Patient transferred, IV remains cc3 in place. Administered Medications: 01/23 21:10 Drug: NS 0.9% 1000 ml Route: IV; Rate: 1 bolus; Site: right antecubital; cc3 22:30 Follow up: Response: No adverse reaction; IV Status: Completed infusion; IV Intake: cc3 1000ml 21:20 Drug: morphine 4 mg Route: IVP; Site: right antecubital; cc3 21:50 Follow up: Response: No adverse reaction; Pain is decreased cc3 21:25 Drug: Zofran 4 mg Route: IVP; Site: right antecubital; cc3 21:50 Follow up: Response: No adverse reaction; Nausea is decreased cc3 21:30 Drug: Mefoxin 1 grams Route: IVPB; Infused Over: 30 mins; Site: right antecubital; cc3 21:40 Follow up: Response: No adverse reaction; IV Status: Completed infusion; IV Intake: [id number] Intake: 21:40 IV: 10ml; Total: 10ml. cc3 22:30 IV: 1000ml; Total: 1010ml. cc3 Outcome: 21:28 Decision to Hospitalize by Provider. snw 23:54 Discharge ordered by . snw 23:58 ER care complete, transfer ordered by MD. [facility] 01/24 02:10 Transferred by ground EMS to [facility], Transfer form completed. cc3 Condition: stable Instructed on the need for transfer, Demonstrated understanding of instructions. 02:22 Patient left the ED. cc3 Signatures: Priscila Rowland, DIRECTOR OF GLOBAL SALES-C DIRECTOR OF GLOBAL SALES-CsnLakisha Walton Erika, RN RN ed1 Lanie Davis cc3 Corrections: (The following items were deleted from the chart) 01:31 00:10 Reassessment: Patient appears in no apparent distress at this time. Patient cc3 and/or family updated on plan of care and expected duration. Pain level reassessed. Patient is alert, oriented x 3, equal unlabored respirations, skin warm/dry/pink. Patient for transfer to [facility], report called and handed over to MATTI English. cc3 02:20 02:10 Reassessment: Patient appears in no apparent distress at this time. Patient cc3 and/or family updated on plan of care and expected duration. Pain level reassessed. Patient is alert, oriented x 3, equal unlabored respirations, skin warm/dry/pink. [facility] came for patient transport. cc3
--- NOTE | 2019-01-23 21:29 | EDPHYS ---
Physician Documentation [facility] Name: Zehra Car Age: 23 yrs Sex: Female : 1995 Arrival Date: 01/23/2019 Time: 20:20 Bed 19 Private MD: ED Physician Carmine Rose HPI: 01/23 21:14 This 23 yrs old Female presents to ER via Wheelchair with complaints of snw Abdominal Pain. 21:14 The patient presents with abdominal pain in the epigastric area, in the right upper snw quadrant. Onset: The symptoms/episode began/occurred suddenly, 3 day(s) ago, and became worse and became persistent. The symptoms radiate to right back. Associated signs and symptoms: Pertinent positives: nausea. The symptoms are described as sharp, shooting, steady. Severity of pain: At its worst the pain was severe incapacitating in the emergency department the pain is unchanged. The patient has experienced a previous episode, but today's symptoms are worse. The patient has been recently seen by a physician: The patient has been recently seen at the [facility] Emergency Department, yesterday, for similar complaints admitted, declined surgery. Po at 1300 today and pt unable to tolerate pain or po since, x 2. 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 - Social history:: Smoking status: Patient/guardian denies using tobacco. - Ebola Screening: : Patient negative for fever greater than or equal to 101.5 degrees Fahrenheit, and additional compatible Ebola Virus Disease symptoms Patient denies exposure to infectious person Patient denies travel to an Ebola-affected area in the 21 days before illness onset No symptoms or risks identified at this time. ROS: 21:12 Constitutional: Negative for fever, chills, and weight loss, Eyes: Negative for injury, snw pain, redness, and discharge, ENT: Negative for injury, pain, and discharge, Neck: Negative for injury, pain, and swelling, Cardiovascular: Negative for chest pain, palpitations, and edema, Respiratory: Negative for shortness of breath, cough, wheezing, and pleuritic chest pain, Back: Negative for injury and pain, : Negative for injury, bleeding, discharge, and swelling, MS/Extremity: Negative for injury and deformity, Skin: Negative for injury, rash, and discoloration, Neuro: Negative for headache, weakness, numbness, tingling, and seizure, Psych: Negative for depression, anxiety, suicide ideation, homicidal ideation, and hallucinations. 21:12 Abdomen/GI: Positive for abdominal pain, nausea, of the posterior aspect of left lateral abdomen, right upper quadrant and left upper quadrant. Exam: 21:12 Constitutional: This is a well developed, well nourished patient who is awake, alert, snw and in no acute distress. Head/Face: Normocephalic, atraumatic. Eyes: Pupils equal round and reactive to light, extra-ocular motions intact. Lids and lashes normal. Conjunctiva and sclera are non-icteric and not injected. Cornea within normal limits. Periorbital areas with no swelling, redness, or edema. ENT: Nares patent. No nasal discharge, no septal abnormalities noted. Tympanic membranes are normal and external auditory canals are clear. Oropharynx with no redness, swelling, or masses, exudates, or evidence of obstruction, uvula midline. Mucous membranes moist. Neck: Trachea midline, no thyromegaly or masses palpated, and no cervical lymphadenopathy. Supple, full range of motion without nuchal rigidity, or vertebral point tenderness. No Meningismus. Chest/axilla: Normal chest wall appearance and motion. Nontender with no deformity. No lesions are appreciated. Cardiovascular: Regular rate and rhythm with a normal S1 and S2. No gallops, murmurs, or rubs. Normal PMI, no JVD. No pulse deficits. Respiratory: Lungs have equal breath sounds bilaterally, clear to auscultation and percussion. No rales, rhonchi or wheezes noted. No increased work of breathing, no retractions or nasal flaring. Back: No spinal tenderness. No costovertebral tenderness. Full range of motion. Skin: Warm, dry with normal turgor. Normal color with no rashes, no lesions, and no evidence of cellulitis. MS/ Extremity: Pulses equal, no cyanosis. Neurovascular intact. Full, normal range of motion. Neuro: Awake and alert, GCS 15, oriented to person, place, time, and situation. Cranial nerves II-XII grossly intact. Motor strength 5/5 in all extremities. Sensory grossly intact. Cerebellar exam normal. Normal gait. Psych: Awake, alert, with orientation to person, place and time. Behavior, mood, and affect are within normal limits. 21:12 Abdomen/GI: Inspection: obese Bowel sounds: active, Palpation: moderate abdominal tenderness, in the right upper quadrant, radiating to back with pt restless and pale. Vital Signs: 20:35 BP 102 / 79; Pulse 63; Resp 20; Temp 98(TE); Pulse Ox 100% on R/A; Weight 113.4 kg; ed1 Height 5 ft. 3 in. (160.02 cm); Pain 10/10; 21:30 BP 101 / 69; Pulse 88; Resp 18 S; Pulse Ox 100% on R/A; cc3 22:40 BP 106 / 49; Pulse 66; Resp 18 S; Pulse Ox 100% on R/A; cc3 23:00 BP 101 / 67; Pulse 60; Resp 17 S; Pulse Ox 99% on R/A; cc3 05/ 00:45 BP 105 / 60; Pulse 61; Resp 17 S; Pulse Ox 99% on R/A; cc3 01:28 BP 113 / 61; Pulse 59; Resp 17 S; Pulse Ox 99% on R/A; cc3 02:10 BP 106 / 65; Pulse 75; Resp 18 S; Pulse Ox 100% on R/A; cc3 01/23 20:35 Body Mass Index 44.29 (113.40 kg, 160.02 cm) ed1 MDM: 01/23 20:37 Patient medically screened. cheryl 21:11 Data reviewed: vital signs, nurses notes. Data interpreted: Pulse oximetry: on room air snw is 100 %. Interpretation: normal. Counseling: I had a detailed discussion with the patient and/or guardian regarding: the historical points, exam findings, and any diagnostic results supporting the discharge/admit diagnosis, lab results, radiology results, the need for further work-up and treatment in the hospital. Physician consultation: Marcell Nunes MD was called at 21:11, regarding admission, consult, need to evaluate the patient as soon as possible. 23:00 ED course: Labs returned. Pt noted to have elevated LFT's since yesterday. Ast/Alt snw 53/68 yesterday and 134/191 today. Today Tbili 4.9. Dr. Nunes in dept evaluating the pt when LFT's returned. 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 23:20 Physician consultation: Dr. Blanca Gaffney was called at 23:21, was contacted at 23:21, snw regarding regarding transfer, patient's condition, Dr. Gaffney will kindly see pt at [facility]. Awaiting: Hospitalist consult. 23:48 Physician consultation: Dr Ervin was contacted at 23:48, regarding regarding snw transfer, [facility]. 01/23 20:51 Order name: CBC with Diff; Complete Time: 21:25 snw 01/23 20:51 Order name: Chem 7; Complete Time: 21:40 snw 01/23 20:51 Order name: LFT's; Complete Time: 21:40 snw 01/23 20:51 Order name: NPO; Complete Time: 21:30 snw Administered Medications: 21:10 Drug: NS 0.9% 1000 ml Route: IV; Rate: 1 bolus; Site: right antecubital; cc3 22:30 Follow up: Response: No adverse reaction; IV Status: Completed infusion; IV Intake: cc3 1000ml 21:20 Drug: morphine 4 mg Route: IVP; Site: right antecubital; cc3 21:50 Follow up: Response: No adverse reaction; Pain is decreased cc3 21:25 Drug: Zofran 4 mg Route: IVP; Site: right antecubital; cc3 21:50 Follow up: Response: No adverse reaction; Nausea is decreased cc3 21:30 Drug: Mefoxin 1 grams Route: IVPB; Infused Over: 30 mins; Site: right antecubital; cc3 21:40 Follow up: Response: No adverse reaction; IV Status: Completed infusion; IV Intake: [id number] Disposition: 01/23/19 23:58 Transfer ordered to [facility]. Diagnosis are Choledocolithiasis, Upper abdominal pain, unspecified. - Reason for transfer: Higher level of care. - Accepting physician is Dr. Webb. - Condition is Stable. - Problem is an acute exacerbation. - Symptoms have worsened. Addendum: 01/26/2019 06:44 Co-signature as Attending Physician, Carmine Rose MD I agree with the assessment and c orellana plan of care. PA/POLYSOMNOGRAPHY TECHNICIAN's history reviewed, patient interviewed, and examined. Signatures: Dispatcher [employer] EDMI Carmine Rose MD MD cha Therrien, Shelly, SCHOOL SUPERINTENDENT-C SCHOOL SUPERINTENDENT-Csnw Naida Lara, RN RN ed1 Lanie Davis cc3 Corrections: (The following items were deleted from the chart) 01/23 21:42 21:28 Hospitalization Ordered by Marcell Nunes MD for Inpatient Admission. Preliminary snw diagnosis is Cholelithiasis; Upper abdominal pain, unspecified - intractable. Bed requested for Telemetry/MedSurg (Inpatient). Status is Inpatient Admission. Condition is Stable. Problem is new. Symptoms have worsened. UTI on Admission? No. snw 23:56 23:54 01/23/2019 23:54 Discharged to Home. Impression: Conjunctivitis. Condition is snw Stable. Forms are Medication Reconciliation Form, Thank You Letter, Antibiotic Education, Prescription Opioid Use. Follow up: Emergency Department; When: As needed; Reason: Worsening of condition. Follow up: [facility]ana[facility] Laguerre; When: 1 week; Reason: Recheck today's complaints, Continuance of care. snw 01/24 02:22 01/23 23:58 01/23/2019 23:58 Transfer ordered to [facility]. cc3 Diagnosis is Choledocolithiasis; Upper abdominal pain, unspecified. Reason for transfer: Higher level of care. Accepting physician is Dr. Webb. Condition is Stable. Problem is an acute exacerbation. Symptoms have worsened. snw
[2019-01-23] MEDS ORDERED: MORPHINE 4 MG/ML SYR ONE (21:30)
[2019-01-23] MEDS ORDERED: ONDANSETRON 4 MG/2 ML VIAL ONE (21:31)
[2019-01-23] MEDS ORDERED: CEFOXITIN/SWI 1gm 1 GM/10 ML SYR ONE (21:32)
[2019-01-23 21:36] LABS: ALT/SGPT 191 U/L (12-78); AST/SGOT 134 U/L (15-37); Albumin 3.4 g/dL (3.4-5.0); Alkaline Phosphatase 131 U/L (45-117); BUN Blood Urea Nitrogen 12 mg/dL (7-18); Bicarbonate 26 mmol/L (21-32); Bilirubin Direct 3.6 mg/dL (0-0.2); Bilirubin Total 4.9 mg/dL (0.2-1.0); Glucose Level 106 mg/dL (74-106); Potassium 4.1 mmol/L (3.5-5.1); Protein, Total 7.2 g/dL (6.4-8.2); Sodium Level 138 mmol/L (136-145)
--- NOTE | 2019-01-24 02:50 | CON ---
Date of Consultation: 01/23/2019 Diagnosis: Epigastric right upper quadrant pain. History Of Present Illness: This is the case of a 23-year-old patient, who was discharged this after noon after being admitted yesterday for acute cholecystitis, symptomatic cholelithiasis. She decided to go home. Discharged by Dr. Harrison this afternoon. Few hours later, she came to the ER after ea ting dinner with exacerbation of symptoms and epigastric right upper quadrant pain again. She stated she had some nausea. No vomiting. No dysuria or hematuria. No hematochezia or melena. No recent traveling out of the country. No family member sick at home. Past Medical History: Asthma. Medications: Weight loss pill. Allergies: NONE. Past Surgical History: None. Social History: She does not smoke. She does not drink alcohol. Review of Systems: Ten points otherwise unremarkable. Physical Examination: General: The patient is awake and alert. HEENT: Pupils are equal and reactive. Anicteric. Neck: Supple. Chest: Clear. Abdomen: Soft and depressible. Epigastric right upper quadrant pain. Sewell sign positive. Breasts: Deferred. Pelvic: Deferred. Rectal: Deferred. Extremities: Good capillary refill. Neurologic: Cranial nerves II through XII grossly within normal limits. Laboratory Data: WBC count 10, platelets of 239. Total bilirubin of 4.9 with AST 124, ALT 191, franky line phosphate 131. The ultrasound done previously in this patient was interpreted by Dr. Jefe thakkar as cholelithiasis. Assessment: This is a 23-year-old patient with symptomatic cholelithiasis, acute cholecystitis, now with apparently probably a common bile duct stone since the LFTs are elevated. From a surgical stand point, we have to work that out. We have to have a GI available or MRCP done. None of them are avai lable at this moment, so we recommend this patient to be transferred out of this institution to a [facility] where they can provide the service at proper places and then proceed with a cholecystectomy. The patient was advised. She wants that to be done to a higher level of care, to have properly done an E LEARN TO SWIM INSTRUCTOR to rule out stones in the common bile duct. RAEANN/WALTER Voice ID: [id number] Report ID: [id number]
== END 2019-01-24 02:22 | disposition short-term general hospital (02) ==
LOC: ER 20:16 → ERHOLD 21:36 → UNDOADMIN 21:36 → ER 01-24 02:22
DX: K80.50 Calculus of bile duct without cholangitis or cholecystitis without obstruction (principal)
CPT/HCPCS: 36415; 80048; 80076; 85025; 96361; 96374; 96375; 99285; J2405; J7030